=== PATIENT | male | born 1995 | race Caucasian/White ===

== ENCOUNTER 2020-04-07 20:19 | Emergency (ER) | payer BC, SELFPAY ==
--- NOTE | ~2020-04-07 | XR_ITS ---
EXAMINATION: XR chest 1V portable EXAM DATE: 04/07/2020 22:16 INDICATION: Cough, body aches, shortness of breath. Vomiting, blood in stool. TECHNIQUE: Portable AP frontal chest x-ray was obtained. Comparison is made to prior examination from 06/28/2010. FINDINGS: Ill-defined density over the right lower lung zone, could be developing acute airspace dise ase. The lungs are otherwise clear. There are no pleural effusions. The cardiomediastinal silhouett e is within normal limits. There is no pneumothorax suspected. The bones and soft tissues are unrem arkable. IMPRESSION: Ill-defined right lower lung zone opacity could be developing acute airspace disease. Cli nical correlation. Reviewed, dictated and finalized at location A. [employer]ORING MANAGER IMPRESSION: Ill-defined right lower lung zone opacity could be developing acute airspace disease. Clinical correlation.
[2020-04-07 20:22] VITALS: BP 122/82; PULSE 89; RESP 18; TEMP 35.8; O2SAT 98
[2020-04-07 22:05] VITALS: BP 108/61; PULSE 70
--- NOTE | 2020-04-07 22:05 | ED.GENADULT ---
HPI - General Adult General Chief complaint: Upper Respiratory Infection Stated complaint: throwing up blood, body ache Time Seen by Provider: 04/07/20 21:01 History of Present Illness HPI narrative: Patient is a 25-year-old male who presents ER after having an episode of emesis that he thinks may have had some blood in it. Reports he started feeling unwell about 4 days ago and was having body aches that then progressed to subjective fever and has been having frequent cough. This evening he had a episode of coughing that once it ended he began to feel flushed and then vomited. A lot of food was in his emesis and then he felt like there is a small sliver of burgundy on top of that that represented blood. He has been having no dark black stools. He is not on a blood thinner. He does take ibuprofen on occasion has not been having excessive acid reflux. No loss of consciousness. Related Data Allergies Allergy/AdvReac Type Severity Reaction Status Date / Time No Known Allergies Allergy Mild Verified 04/07/20 20:26 Review of Systems Review of Systems: All systems reviewed & are unremarkable except as noted in HPI and below Constitutional: Constitutional: Denies chills, Reports fatigue and Reports fever(s) ENT: Denies nasal congestion and Denies sore throat Cardiovascular: Cardiovascular: Denies chest pain and Denies radiating jaw, neck or arm pain Respiratory: Respiratory: Reports cough and Reports dyspnea Gastrointestinal: Gastrointestinal: Denies abdominal pain, Denies heartburn, Reports nausea and Reports vomiting PMFSH Past Medical History Medical History (Updated 04/07/20 @ 22:53 by Steven Mayo MD) Healthy adult male Surgical History Surgical History (Updated 04/07/20 @ 22:08 by Steven Mayo MD) History of repair of ACL History of shoulder surgery Social History Social History (Updated 04/07/20 @ 22:08 by Steven Mayo MD) Smoking status: Never smoker Gender identity (if verbalized by the patient): Male Exam Narrative: Exam Narrative: GENERAL: Well-appearing, well-nourished, and in no acute distress. HEAD: Normocephalic, atraumatic. CHEST: Clear to auscultation. No respiratory distress. HEART: Regular rate and rhythm. Normal peripheral pulses. ABDOMEN: Soft, nontender, nondistended. EXTREMITIES: Normal range of motion. No edema. NEURO: Alert and oriented x3. PSYCH: Normal mood and affect. Course Course Emergency Course: Patient informed of results. Will start on azithromycin and albuterol for home. Vital Signs Vital signs: Vital Signs Temperature 96.4 F L 04/07/20 20:22 Pulse Rate 89 04/07/20 20:22 Respiratory Rate 18 04/07/20 20:22 Blood Pressure 122/82 04/07/20 20:22 Pulse Oximetry 98 04/07/20 20:22 Temperature 96.4 F L 04/07/20 20:22 Pulse Rate 70 04/07/20 22:05 Respiratory Rate 18 04/07/20 20:22 Blood Pressure 117/66 04/07/20 22:06 Pulse Oximetry 98 04/07/20 20:22 Medical Decision Making Vital Signs Vital Signs: Vital Signs Temperature 96.4 F L 04/07/20 20:22 Pulse Rate 89 04/07/20 20:22 Respiratory Rate 18 04/07/20 20:22 Blood Pressure 122/82 04/07/20 20:22 Pulse Oximetry 98 04/07/20 20:22 Temperature 96.4 F L 04/07/20 20:22 Pulse Rate 70 04/07/20 22:05 Respiratory Rate 18 04/07/20 20:22 Blood Pressure 117/66 04/07/20 22:06 Pulse Oximetry 98 04/07/20 20:22 Imaging Data Radiologist's impression: ITS Impressions Chest X-Ray 04/07/20 22:23 IMPRESSION: Ill-defined right lower lung zone opacity could be developing acute airspace disease. Clinical correlation. Discharge Plan Discharge Clinical Impression: Pneumonia Patient Disposition: Home, Self-Care Condition: Stable Instructions: Antibiotic Form, Pneumonia (ED) Additional Instructions: There is evidence of pneumonia on your chest x-ray. Because your Covid test is pending and you are not known to be C
[2020-04-07 22:06] VITALS: BP 112/63; BP 117/66
[2020-04-07 23:13] VITALS: BP 121/74; PULSE 97; RESP 16; TEMP 37.3; O2SAT 97
== END 2020-04-07 23:23 | disposition home or self-care (01) ==
PROVIDERS: Emergency Provider Emergency Medicine
DX: J18.9 Pneumonia, unspecified organism (principal)
CPT/HCPCS: 71045; 99283